=== PATIENT | male | born 1955 | race Hispanic/Latino ===

== ENCOUNTER 2021-11-20 11:27 | Emergency (ER) | payer MEDICARE ==
[2021-11-20] MEDS ORDERED: Dextrose 50% Abboject 50 ML SYRINGE ONE ×2 (11:41→14:31)
[2021-11-20 11:59] LABS: #Eosinphils 0.1 10x3/uL (0.0-0.5); #Monocytes 0.5 10x3/uL (0.0-1.1); #Neutrophils 3.6 10x3/uL (1.5-8.4); %Basophils 0.2 % (0.0-2.0); %Eosinophils 1.3 % (0.0-6.0); %Neutrophils 78.3 % (40.0-75.0); Mean Corpuscular HGB CONC 30.5 g/dL (32.0-36.0); Mean Corpuscular Hemoglobin 28.6 pg (27.0-33.0); Mean Platelet Volume 9.5 fl (7.4-10.4); Platelet Count 150 10x3/uL (150-450); RBC Distribution Width 15.9 % (11.5-14.5); Red Blood Cell (RBC) Count 4.19 10x6/uL (4.32-5.72); White Blood Cell (WBC) Count 4.6 10x3/uL (3.5-10.5)
[2021-11-20 12:05] LABS: INR-International Normal Ratio 1.1; PTT 33.1 sec (22.0-33.0); Prothrombin Time 11.8 sec (9.5-12.1)
[2021-11-20 12:08] LABS: CK (CPK) 44 U/L (30-200); CRP (Inflammatory) 12.11 mg/dL (= or < 0.5); Magnesium 2.3 mg/dL (1.6-2.6)
[2021-11-20 12:28] LABS: CKMB 5.9 ng/mL (0-6.6)
[2021-11-20 12:34] LABS: SARS-CoV-2 NAA Rapid Test Not Detected (NotDetected)
[2021-11-20 13:49] LABS: ALT (SGPT) 11 U/L (8-55); AST (SGOT) 33 U/L (5-34); Albumin 2.9 g/dL (3.4-4.8); Alkaline Phosphatase 137 U/L (40-110); Anion Gap 21 mmol/L (10-20); BUN (Urea Nitrogen) 34 mg/dL (8.4-25.7); Bilirubin, Total 0.8 mg/dL (0.2-1.2); Calc. Creatinine Clearance 0 mL/min (70-130); Calcium 8.7 mg/dL (7.8-10.44); Carbon Dioxide 21 mmol/L (23-31); Chloride 98 mmol/L (98-107); Estimated GFR 9; Potassium 5.6 mmol/L (3.5-5.1); Protein, Total 6.9 g/dL (5.8-8.1); Sodium 134 mmol/L (136-145)
[2021-11-20 13:58] LABS: Glucose 41 mg/dL (80-115)
== END 2021-11-20 14:53 | disposition home or self-care (01) ==
LOC: CSHERS 11:27
DX: R41.82 Altered mental status, unspecified (principal); N17.9 Acute kidney failure, unspecified; I13.0 Hypertensive heart and chronic kidney disease with heart failure and stage 1 through stage 4 chronic kidney disease, or unspecified chronic kidney disease; I50.22 Chronic systolic (congestive) heart failure; E11.22 Type 2 diabetes mellitus with diabetic chronic kidney disease; N18.9 Chronic kidney disease, unspecified; D63.1 Anemia in chronic kidney disease; K21.9 Gastro-esophageal reflux disease without esophagitis; I48.91 Unspecified atrial fibrillation; Z20.822 Contact with and (suspected) exposure to COVID-19
CPT/HCPCS: 70450; 71045; 80053; 82550; 82553; 82962; 83605; 83735; 84484; 85025; 85610; 85730; 86140; 93005; 96374; 96376; 99285; U0002; 36416; J7999